=== PATIENT | female | born 1960 | race Caucasian/White ===

== ENCOUNTER 2016-12-24 13:58 | Observation (INO) | payer OTHER ==
[~2016-12-24] VITALS: Ht 172.7 cm; Wt 86.0 kg
[2016-12-24] VITALS (7 sets, daily range): BP systolic 121–180; BP diastolic 55–88; PULSE 72–115; RESP 16–18; TEMP 98.5–99.4; O2SAT 97–100
[2016-12-24 14:15] LABS: I-STAT POTASSIUM 3.7 MMOL/L (3.5-4.9); I-STAT SODIUM 141 MMOL/L (138-146)
[2016-12-24 14:17] LABS: AUTOMATED NEUTROPHIL # 5.4 TH/MM3 (1.8-7.7); BASOPHIL # 0.1 TH/MM3 (0-0.2); BASOPHIL % 0.6 % (0.0-2.0); EOSINOPHIL # 0.1 TH/MM3 (0-0.4); EOSINOPHIL % 1.8 % (0.0-4.0); HEMATOCRIT 43.8 % (35.0-46.0); HEMO FLAGS DIFF FINAL; LYMPH % 25.8 % (9.0-44.0); LYMPHOCYTE # 2.1 TH/MM3 (1.0-4.8); MEAN CELL VOLUME 87.3 FL (80.0-100.0); MEAN CORPUSCULAR HEMOGLOBIN 29.4 PG (27.0-34.0); MEAN CORPUSCULAR HGB CONC 33.7 % (32.0-36.0); MONO % 6.8 % (0.0-8.0); PLATELET COUNT 268 TH/MM3 (150-450); RED BLOOD COUNT 5.02 MIL/MM3 (4.00-5.30); RED CELL DISTRIBUTION WIDTH 13.4 % (11.6-17.2); WHITE BLOOD COUNT 8.3 TH/MM3 (4.0-11.0)
[2016-12-24 14:24] LABS: APTT (PATIENT) 22.6 SEC (24.3-30.1); INTERNATIONAL NORMALIZED RATIO 0.9 RATIO; PROTHROMBIN TIME - PATIENT 10.1 SEC (9.8-11.6)
--- NOTE | 2016-12-24 14:25 | RADRPT ---
EXAM DATE/TIME: 12/24/2016 14:08 [facility] COMPARISON: No previous studies available for comparison. INDICATIONS : Temporarily unable to speak, since resolve RADIATION DOSE: 56.35 CTDIvol (mGy) This report was called by Dr Kincaid to Dr Hernandez at 1420 MEDICAL HISTORY : None SURGICAL HISTORY : None. ENCOUNTER: Initial ACUITY: 1 day PAIN SCALE: 0/10 LOCATION: cranial TECHNIQUE: Multiple contiguous axial images were obtained of the head. Using automated exposure control and adj ustment of the mA and/or kV according to patient size, radiation dose was kept as low as reasonably a chievable to obtain optimal diagnostic quality images. DICOM format image data is available electro nically for review and comparison. FINDINGS: CEREBRUM: The ventricles are normal for age. No evidence of midline shift, mass lesion, hemorrhage or acute in farction. No extra-axial fluid collections are seen. POSTERIOR FOSSA: The cerebellum and brainstem are intact. The 4th ventricle is midline. The cerebellopontine angle i s unremarkable. EXTRACRANIAL: The visualized portion of the orbits is intact. SKULL: The calvaria is intact. No evidence of skull fracture. CONCLUSION: Normal examination. Kirk Kirkpatrick Jr., MD on December 24, 2016 at 14:19 Board Certified Radiologist. This report was verified electronically.
[2016-12-24 14:35] LABS: BETA HCG QUANT 2 MIU/ML (0-5); CREATINE KINASE 115 U/L (26-192)
--- NOTE | 2016-12-24 14:46 | PD ---
HPI Chief Complaint: Stroke Alert Time Seen by Provider: 14:05 Travel History International Travel<30 days: No Contact w/Intl Traveler<30days: No Traveled to known affect area: No History of Present Illness HPI 56-year-old female came to the emergency room brought by EMS as a stroke alert. Patient was last seen normal at 12:30 PM. 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 She just got up from her desk after lunch to go and talk to another staff when she started getting very confused. She was having trouble talking. No history of headache or loss of consciousness. The symptoms continued when EMS arrived. She did not have any focal deficits. Blood sugar was 162. Patient was tachycardic and hypertensive for them. As per the patient she's never had these symptoms in the past. Patient denied of any chest pain or syncopal episode. She seemed very anxious and kept apologizing. She was talking and answering questions but I had to repeat the question partly because she seemed anxious and overwhelmed and partly because she seemed to have trouble focusing. [facility] Past Medical History Narrative Medical List of her past medical, surgical, social and family history is reviewed from the nursing note. Hypertension: Yes ?: Unknown Social History Alcohol Use: No Tobacco Use: No Substance Use: No Allergies-Medications (Allergen,Severity, Reaction): Coded Allergies: codeine (Verified Allergy, Severe, Nausea/Vomiting, 12/24/16) Comments List of her allergies reviewed from the nursing note. Reported Meds & Prescriptions Reported Meds & Active Scripts Active Reported Fish Oil + D3 (Fish Oil-Cholecalciferol) 1,200-1,000 Mg-Unit Cap 1 Cap PO DAILY Prilosec (Omeprazole Magnesium) 10 Mg Pow 10 Mg PO DAILY Imitrex (Sumatriptan Succinate) Unknown Strength Tab Unknown Dose PO ONCE PRN If a satisfactory response has not been obtained at 2 hours, a second dose may be administered Prempro Blister Pack (Estrogens Conj/Medroxyprogest Acet) 0.625-2.5 Mg Tab 1 Tab PO EVERY OTHER DAY Biotin Unknown Strength Tab Unknown Dose PO DAILY Lisinopril Unknown Strength Tab 20 Mg PO DAILY Narrative Medication List of her home medications reviewed from the nursing note. Review of Systems Except as stated in HPI: all other systems reviewed are Neg Neurologic: Positive: Change in Mentation, Other (confusion) Psychiatric: Positive: Anxiety Physical Exam Narrative GENERAL: Awake, alert, extremely anxious SKIN: Focused skin assessment warm/dry. HEAD: Atraumatic. Normocephalic. EYES: Pupils equal and round. No scleral icterus. No injection or drainage. ENT: No nasal bleeding or discharge. Mucous membranes pink and moist. NECK: Trachea midline. No JVD. CARDIOVASCULAR: Regular rate and rhythm. No murmur appreciated. RESPIRATORY: No accessory muscle use. Clear to auscultation. Breath sounds equal bilaterally. GASTROINTESTINAL: Abdomen soft, non-tender, nondistended. Hepatic and splenic margins not palpable. MUSCULOSKELETAL: No obvious deformities. No clubbing. No cyanosis. No edema. NEUROLOGICAL: Awake and alert. No obvious cranial nerve deficits. Motor grossly within normal limits. Normal speech. NIH stroke score 0 PSYCHIATRIC: Appropriate mood and affect; insight and judgment normal. Data Data Last Documented VS Vital Signs Date Time Temp Pulse Resp B/P (MAP) Pulse Ox O2 Delivery O2 Flow Rate FiO2 12/24/16 14:25 92 16 164/78 (106) 99 Room Air Orders Orders Diet Npo (12/24/16 Dinner) Activity Bed Rest (12/24/16 ) Electrocardiogram (12/24/16 ) I-Stat Creatinine (12/24/16 14:05) I-Stat Profile (12/24/16 14:05) Prothrombin Time / Inr (Pt) (12/24/16 14:05) Act Partial Throm Time (Ptt) (12/24/16 14:05) Complete Blood Count With Diff (12/24/16 14:05) Fibrinogen (12/24/16 14:05) Creatine Kinase (Cpk) (12/24/16 14:05) Troponin I (12/24/16 14:05) Ua Includes Microscopic (12/24/16 14:05) Drug Screen, Random Urine (12/24/16 14:05) Type And Screen (12/24/16 14:05) Ct Brain W/O Iv Contrast(Rout) (12/24/16 ) Beta Hcg (Quant/Titer) (12/24/16 14:05) Blood Glucose (12/24/16 14:05) Ecg Monitoring (12/24/16 14:05) Neuro Checks Q2HX12,Q4H (12/24/16 14:05) Nursing Bedside Swallow Assess .ONCE (12/24/16 14:05) Iv Access Insert/Monitor (12/24/16 14:05) NPO (12/24/16 14:05) Oximetry (12/24/16 14:05) Oxygen Administration (12/24/16 14:05) Resp Oxygen Ricki C Titrat 1-4 L (12/24/16 14:05) Cath For Specimen (12/24/16 14:05) Westergren Sedimentation Rate (12/24/16 14:16) Rapid Plasma Regin (Rpr) W Ttr (12/24/16 14:16) Christa Screen (12/24/16 14:16) Thyroid Stimulating Hormone (12/24/16 14:16) Free Thyroxine (T4) (12/24/16 14:16) Vitamin B1 (Thiamine) (12/24/16 14:16) Vitamin B12 (12/24/16 14:16) Ast (Sgot) (12/24/16 14:16) Alt (Sgpt) (12/24/16 14:16) Mri Brain W&W/O Contrast (12/24/16 14:16) Eeg Study (12/24/16 14:16) Holter Monitor Recording (12/24/16 14:16) Machine Buffer / Telemetry BONY.Q8H (12/24/16 14:16) ^ Seizure Precautions (12/24/16 14:16) Mra Brain W/O Contrast (Cow) (12/24/16 14:16) Aspirin Ec (Ecotrin Ec) (12/24/16 14:30) Sodium Chlor 0.9% 1000 Ml Inj (Ns 1000 M (12/24/16 14:16) Lipid Profile (12/24/16 14:16) Mra Carotids W Contrast (12/24/16 14:16) Scd&Teds Bilateral/Knee High BONY.QSHIFT (12/24/16 14:16) Alcohol (Ethanol) (12/24/16 14:54) Place In Observation (12/24/16 ) Admit Order (Ed Use Only) (12/24/16 15:13) Echo 2d Comp With Doppler (12/25/16 14:16) Labs Laboratory Tests Test 12/24/16 14:00 10/11/17 14:05 12/24/16 14:42 White Blood Count 8.3 TH/MM3 Red Blood Count 5.02 MIL/MM3 Hemoglobin 14.8 GM/DL Bedside Hemoglobin 14.6 G/DL Hematocrit 43.8 % Bedside Hematocrit 43.0 % Mean Corpuscular Volume 87.3 FL Mean Corpuscular Hemoglobin 29.4 PG Mean Corpuscular Hemoglobin Concent 33.7 % Red Cell Distribution Width 13.4 % Platelet Count 268 TH/MM3 Mean Platelet Volume 9.1 FL Neutrophils (%) (Auto) 65.0 % Lymphocytes (%) (Auto) 25.8 % Monocytes (%) (Auto) 6.8 % Eosinophils (%) (Auto) 1.8 % Basophils (%) (Auto) 0.6 % Neutrophils # (Auto) 5.4 TH/MM3 Lymphocytes # (Auto) 2.1 TH/MM3 Monocytes # (Auto) 0.6 TH/MM3 Eosinophils # (Auto) 0.1 TH/MM3 Basophils # (Auto) 0.1 TH/MM3 CBC Comment DIFF FINAL Differential Comment Prothrombin Time 10.1 SEC Prothromb Time International Ratio 0.9 RATIO Activated Partial Thromboplast Time 22.6 SEC Fibrinogen 270 mg/dL Bedside Sodium 141 MMOL/L Bedside Potassium 3.7 MMOL/L Bedside Chloride 104 MMOL/L Bedside Blood Urea Nitrogen 18 MG/DL Bedside Creatinine 0.8 MG/DL Bedside Glucose 170 MG/DL Total Creatine Kinase 115 U/L Troponin I LESS THAN 0.02 NG/ML Human Chorionic Gonadotropin, Quant 2 MIU/ML Urine Opiates Screen NEG Urine Barbiturates Screen NEG Urine Amphetamines Screen NEG Urine Benzodiazepines Screen NEG Urine Cocaine Screen NEG Urine Cannabinoids Screen NEG Urine Color LIGHT-YELLOW Urine Turbidity CLEAR Urine pH 6.5 Urine Specific [place] 1.004 Urine Protein NEG mg/dL Urine Glucose (UA) 70 mg/dL Urine Ketones NEG mg/dL Urine Occult Blood TRACE Urine Nitrite NEG Urine Bilirubin NEG Urine Urobilinogen LESS THAN 2.0 MG/DL Urine Leukocyte Esterase NEG MDM Medical Decision Making Medical Screen Exam Complete: Yes Emergency Medical Condition: Yes Medical Record Reviewed: Yes Interpretation(s) Twelve-lead EKG was reviewed by me. Normal sinus rhythm, normal axis, nonspecific ST-T wave changes. Heart rate of 92 bpm. Differential Diagnosis TIA, anxiety, UTI, electrolyte abnormalities, intracranial bleed, hypertensive encephalopathy Narrative Course 2:42 PM blood test results are back and within acceptable limit except for her blood sugar which is a little high. Plain head CT is negative. Dr. Baer from neurology came to see the patient and he agrees that patient is not a TPA candidate. He has ordered MRI and MRA. Patient will be admitted for observation. Awaiting for hospitalist to call back. Procedures EKG Prior to Arrival: No Diagnosis Primary Impression: TIA (transient ischemic attack) Qualified Codes: G45.9 - Transient cerebral ischemic attack, unspecified Additional Impression: Anxiety Admitting Information Admitting Physician Requests: Observation Scripts Aspirin (Aspirin) 81 Mg Chew 81 MG CHEW DAILY for Blood Clot Prevention, #30 TAB 0 Refills Prov: Ash Skaggs 12/25/16 Rashmi Hernandez MD Dec 24, 2016 14:46
[2016-12-24] MEDS: SODIUM CHLOR 0.9% 1000 ML INJ 1,000 ML IV SCH ×2 (14:56→23:06)
[2016-12-24] MEDS: ASPIRIN EC 325 MG TABEC PO SCH (15:09)
[2016-12-24 15:23] LABS: BLOOD, URINE TRACE (NEG); GLUCOSE,URINE 70 mg/dL (NEG); KETONE, URINE NEG (NEG); NITRITE,URINE NEG (NEG); PH, URINE 6.5 (5.0-8.5); URINE COLOR LIGHT-YELLOW (YELLW/STRAW)
--- NOTE | 2016-12-24 16:01 | MB ---
cc: JABARI PONCE M.D. 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 Blood pressure there was over 200/100, according to her and she was brought in as a stroke alert. Here her blood pressure was elevated to 180/88 with a pulse of 115. REVIEW OF SYSTEMS She denies any diabetes, hypercholesterolemia, NE, CABG, cardiac arrhythmia, renal, hepatic or pulmonary disease, thyroid disease, lupus, ulcer, cancer, seizure, stroke, Coumadin and atrial fibrillation. SOCIAL HISTORY Nonsmoker. She occasionally has a drink. Lives with her . FAMILY HISTORY Negative for cancer, seizure, stroke. PHYSICAL EXAMINATION VITAL SIGNS: 180/88, 16, 115. NECK: There are no carotid bruits. HEART: Regular rhythm. I do not detect a murmur. NEURO: Pupils are equal, visual pond are full. Extraocular movements intact without nystagmus. Face is symmetric, normal sensation. Tongue was midline. There is no drift. She had normal strength in upper and lower extremities bilaterally. DTRs are 2+ symmetric throughout. Toes downgoing bilaterally. Pinprick is intact throughout. She is not ataxic on [id number]. Speech is fluent. She is not aphasic. She could read well. She follows commands well. She could name well for me. Repeat repetition is normal. Short-term memory 2/3 at 1 minute. LABORATORY DATA All of her labs are pending as she just came into the ER for a stroke alert. IMPRESSION NIH stroke scale is 0. We did not give her TPA because all of her symptoms were resolved and this was more than likely a hypertensive encephalopathy. TIA or small complex partial seizure could be considered. Will do a workup on her and give her an aspirin for now. I will be following her with you in the hospital. MD ERIC [place]/JESÚS /2:18 PM /3:54 PM
[2016-12-24] MEDS ORDERED: GADODIAMIDE PF 287 MG/ML 20 ML VIAL (for RAD MRI) IVCONTRAST ONE (17:00)
--- NOTE | 2016-12-24 17:06 | HHI.HP ---
[facility] Sherita Han MD Admission Diagnosis TIA, confusion, anxiety Diagnoses: Chief Complaint: Confusion Travel History International Travel<30 Days: No Contact w/Intl Traveler <30 Da: No Traveled to Known Affected Are: No History of Present Illness This is a 56-year-old female past medical history of hypertension who presented with confusion. 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 She stated that she was doing her routine and was sitting just but became very confused. She thought that she wanted been hypoglycemic because she did not have her typical snacks so she ate some nuts like she usually does but it did not help her confusion. She stated that she had a hard time doing things like when the phone rang her brain could not process that she had picked up the phone. She stated that since symptoms did not improve she went to Emergency department. Patient stated at the moment she feels her thoughts are more clear and not as confused. Throughout the interview patient answer all questions appropriately. She denies any focal neurological deficits. Patient stated that she has never had this happen to her before. She stated that since she started her new job she does have more stress in her life but she doesn't think that it's a lot of stress that would cause these type of symptoms. She denies feeling anxious or having anxiety. Patient stated that her blood pressure was measured by EMS All other review of system reviewed and negative. Past Family Social History Past Medical History Hypertension Past Surgical History , 2 back surgeries, cholecystectomy, appendectomy, skin cancer removal basal cell Allergies: Coded Allergies: codeine (Verified Allergy, Severe, Nausea/Vomiting, 12/24/16) Active Ordered Medications Current Medications Aspirin (Ecotrin Ec) 325 mg DAILY PO Last administered on 12/24/16 15:09; Start 12/24/16 at 14:30 Sodium Chloride 1,000 ml @ 75 mls/hr [id number] IV Last administered on 14:56; Start 12/24/16 at 14:16 Family History Father has history of diabetes. Social History Patient drinks socially. She stopped smoking 20 years ago. She stated prior she smoked one pack per day for 10 years. Denies illicit drug use. Physical Exam Vital Signs Vital Signs Date Time Temp Pulse Resp B/P (MAP) Pulse Ox O2 Delivery O2 Flow Rate FiO2 12/24/16 14:25 92 16 164/78 (106) 99 Room Air 12/24/16 14:16 99 Room Air 12/24/16 14:16 18 99 Room Air 12/24/16 13:58 115 16 180/88 (118) 100 Physical Exam GENERAL: This is a well-nourished, well-developed patient, in no apparent distress. SKIN: No rashes, ecchymoses or lesions. Cool and dry. HEAD: Atraumatic. Normocephalic. No temporal or scalp tenderness. EYES: Pupils equal round and reactive. Extraocular motions intact. No scleral icterus. No injection or drainage. ENT: Nose without bleeding, purulent drainage or septal hematoma. Throat without erythema, tonsillar hypertrophy or exudate. Uvula midline. Airway patent. NECK: Trachea midline. No JVD or lymphadenopathy. Supple, nontender, no meningeal signs. CARDIOVASCULAR: Regular rate and rhythm without murmurs, gallops, or rubs. RESPIRATORY: Clear to auscultation. Breath sounds equal bilaterally. No wheezes , rales, or rhonchi. GASTROINTESTINAL: Abdomen soft, non-tender, nondistended. No hepato-splenomegaly , or palpable masses. No guarding. MUSCULOSKELETAL: Extremities without clubbing, cyanosis, or edema. No joint tenderness, effusion, or edema noted. No calf tenderness. Negative Homans sign bilaterally. NEUROLOGICAL: Awake and alert. Cranial nerves II through XII intact. Motor and sensory grossly within normal limits. Five out of 5 muscle strength in all muscle groups. Normal speech. Laboratory Laboratory Tests Test 12/24/16 14:00 12/24/16 14:42 White Blood Count 8.3 Red Blood Count 5.02 Hemoglobin 14.8 Bedside Hemoglobin 14.6 Hematocrit 43.8 Bedside Hematocrit 43.0 Mean Corpuscular Volume 87.3 Mean Corpuscular Hemoglobin 29.4 Mean Corpuscular Hemoglobin Concent 33.7 Red Cell Distribution Width 13.4 Platelet Count 268 Mean Platelet Volume 9.1 Neutrophils (%) (Auto) 65.0 Lymphocytes (%) (Auto) 25.8 Monocytes (%) (Auto) 6.8 Eosinophils (%) (Auto) 1.8 Basophils (%) (Auto) 0.6 Neutrophils # (Auto) 5.4 Lymphocytes # (Auto) 2.1 Monocytes # (Auto) 0.6 Eosinophils # (Auto) 0.1 Basophils # (Auto) 0.1 CBC Comment DIFF FINAL Differential Comment Prothrombin Time 10.1 Prothromb Time International Ratio 0.9 Activated Partial Thromboplast Time 22.6 Fibrinogen 270 Bedside Sodium 141 Bedside Potassium 3.7 Bedside Chloride 104 Bedside Blood Urea Nitrogen 18 Bedside Creatinine 0.8 Bedside Glucose 170 Total Creatine Kinase 115 Troponin I LESS THAN 0.02 Human Chorionic Gonadotropin, Quant 2 Urine Color LIGHT-YELLOW Urine Turbidity CLEAR Urine pH 6.5 Urine Specific [place] 1.004 Urine Protein NEG Urine Glucose (UA) 70 Urine Ketones NEG Urine Occult Blood TRACE Urine Nitrite NEG Urine Bilirubin NEG Urine Urobilinogen LESS THAN 2.0 Urine Leukocyte Esterase NEG Result Diagram: 12/24/16 1400 Imaging Last Impressions Head CT 12/24/16 0000 Signed Impressions: Service Date/Time: Saturday, December 24, 2016 14:08 - CONCLUSION: Normal examination. Kirk Kirkpatrick Jr., MD Course Stroke alert was called and she was seen by neurologist Dr. Baer. Patient was not a candidate for TPA day. Caprini VTE Risk Assessment Caprini VTE Risk Assessment: No/Low Risk (score <= 1) Caprini Risk Assessment Model Point Value = 1 Point Value = 2 Point Value = 3 Point Value = 5 Age 41-60 Minor surgery BMI > 25 kg/m2 Swollen legs Varicose veins or History of unexplained or recurrent spontaneous Oral contraceptives or hormone replacement Sepsis (< 1 month) Serious lung disease, including pneumonia (< 1 month) Abnormal pulmonary function Acute myocardial infarction Congestive heart failure (< 1 month) History of inflammatory bowel disease Medical patient at bed rest Age 61-74 Arthroscopic surgery Major open surgery (> 45 min) Laparoscopic surgery (> 45 min) Malignancy Confined to bed (> 72 hours) Immobilizing plaster cast Central venous access Age >= 75 History of VTE Family history of VTE Factor V Leiden Prothrombin [id number] Lupus anticoagulant Anticardiolipin antibodies Elevated serum homocysteine Heparin-induced thrombocytopenia Other congenital or acquired thrombophilia Stroke (< 1 month) Elective arthroplasty Hip, pelvis, or leg fracture Acute spinal cord injury (< 1 month) Prophylaxis Regimen Total Risk Factor Score Risk Level Prophylaxis Regimen 0-1 Low Early ambulation 2 Moderate Order ONE of the following: *Sequential Compression Device (SCD) *Heparin 5000 units SQ BID 3-4 Higher Order ONE of the following medications: *Heparin 5000 units SQ TID *Enoxaparin/Lovenox 40 mg SQ daily (WT < 150 kg, CrCl > 30 mL/min) *Enoxaparin/Lovenox 30 mg SQ daily (WT < 150 kg, CrCl > 10-29 mL/min) *Enoxaparin/Lovenox 30 mg SQ BID (WT < 150 kg, CrCl > 30 mL/min) AND/OR *Sequential Compression Device (SCD) 5 or more Highest Order ONE of the following medications: *Heparin 5000 units SQ TID (Preferred with Epidurals) *Enoxaparin/Lovenox 40 mg SQ daily (WT < 150 kg, CrCl > 30 mL/min) *Enoxaparin/Lovenox 30 mg SQ daily (WT < 150 kg, CrCl > 10-29 mL/min) *Enoxaparin/Lovenox 30 mg SQ BID (WT < 150 kg, CrCl > 30 mL/min) AND *Sequential Compression Device (SCD) Assessment and Plan Assessment and Plan 56-year-old female history of hypertension who presented with confusion Confusion -TIA versus anxiety -CT scan of the head was negative. -Stroke alert called patient was not candidate for TPA. Symptoms seemed to resolved quickly. -Stroke workup already ordered by neurologist Dr. Baer. -Will follow with MRI of the brain, MRA of the brain/neck, echo, lipid panel. -Patient was put on aspirin and IV fluids until CVA is ruled out. Hypertension -Patient is on antihypertensive medication. She is unsure what medication she was on and unsure if it was controlled. -At the moment will allow permissive hypertension until CVA is ruled out. DVT prophylaxis -SCDs. Discussed Condition With patient Chelsey Nieves MD Dec 24, 2016 17:06
[2016-12-24] MEDS ORDERED: PRIL10PO PO (17:10)
[2016-12-24] MEDS ORDERED: PREM.625 PO (17:10)
[2016-12-24] MEDS ORDERED: FISHCAP4 PO (17:10)
[2016-12-24] MEDS ORDERED: IMIT50TA PO (17:10)
[2016-12-24] MEDS ORDERED: LISI10TA3 PO (17:10)
[2016-12-24] MEDS ORDERED: BIOT10TA PO (17:10)
--- NOTE | 2016-12-24 17:21 | RADRPT ---
EXAM DATE/TIME: 12/24/2016 16:20 This report includes an Addendum and supersedes previous reports for this exam. [facility] COMPARISON: No previous studies available for comparison. INDICATIONS : Episode of memory loss. CONTRAST: 20 cc Omniscan (gadodiamide) IV MEDICAL HISTORY : Hypertension. SURGICAL HISTORY : Cholecystectomy. Appendectomy. Tonsillectomy. ENCOUNTER: Subsequent ACUITY: 1 day PAIN SCORE: 0/10 LOCATION: Head. TECHNIQUE: Multiplanar, multisequence MRI of the brain was performed both prior to and following the administration of paramagnetic contrast. FINDINGS: The ventricles are of normal size. There is no parenchymal hemorrhage or mass effect. There is no restricted diffusion to suggest an acute ischemic event. Midline structures are intact. Posterior fossa appears normal. Following intravenous administration of gadolinium there is no abnormal contrast enhancement apprecia hailee. CONCLUSION: 1. Negative MRI for an acute ischemic event. 2. There is no abnormal contrast enhancement. Kiko Dias MD FACR on December 24, 2016 at 17:09 Board Certified Radiologist. This report was verified electronically. ADDENDUM: There is artifact across the brainstem on the postcontrast images. There is small focal area of appa rent enhancement in the lateral aspect of the mary kay at the level the brachial pontis, slightly right o f midline that could be small cryptic AVM in the appropriate clinical circumstances. The there is mi nimal hemosiderin this area as well. This would be inapparent by angiography. This could easily be followed by MRI with contrast with thi n sections through the posterior fossa. Repeat MRI should be performed with the frequency encoding s wapped to orient the artifact from anterior to posterior. Kiko Dias MD FACR on December 25, 2016 at 7:27 Board Certified Radiologist. This report was verified electronically.
--- NOTE | 2016-12-24 17:41 | RADRPT ---
EXAM DATE/TIME: 12/24/2016 16:20 [facility] COMPARISON: No previous studies available for comparison. INDICATIONS : Episode of memory loss. MEDICAL HISTORY : Hypertension. SURGICAL HISTORY : Cholecystectomy. Appendectomy. Tonsillectomy. ENCOUNTER: Subsequent ACUITY: 1 day PAIN SCORE: 0/10 LOCATION: head. Please note a normal MRA of the brain does not entirely exclude the possibility of a small aneurysm, nor the possibility of distal intracranial vessel disease. TECHNIQUE: 3D time of flight MRA was performed. Source images, multiplanar STS MIP, and 3D volume MIP reconstru ctions were reviewed. FINDINGS: There is excellent visualization of the major intracranial arteries out to the second-order branch ve ssels. There is no evidence for aneurysm, vessel truncation or stenosis, and no evidence for vascula r malformation. CONCLUSION: 1. Unremarkable MR angiography of the brain. Yovanny Contreras MD on December 24, 2016 at 17:39 Board Certified Radiologist. This report was verified electronically.
[2016-12-24 18:41] LABS: FREE T4 0.9 NG/DL (0.76-1.46); HDL CHOLESTEROL 54.6 MG/DL (40.0-60.0)
--- NOTE | 2016-12-24 19:01 | RADRPT ---
EXAM DATE/TIME: 12/24/2016 16:20 [place] COMPARISON: No previous studies available for comparison. INDICATIONS : Stenosis. Episode of memory loss. CONTRAST: 20 cc Omniscan (gadodiamide) IV MEDICAL HISTORY : Hypertension. SURGICAL HISTORY : Appendectomy. Cholecystectomy. Tonsillectomy. ENCOUNTER: Subsequent ACUITY: 1 day PAIN SCORE: 0/10 LOCATION: head. Percent stenosis is calculated using the diameter of the stenotic region over the diameter of the nor mal distal internal carotid artery. TECHNIQUE: Bolus infused MRA of the extracranial circulation was performed using a neurovascular coil. Post pro cessing was performed including rotating subvolume maximum intensity projections of each carotid jie ry, rotating full volume maximum intensity projections of both carotid arteries, sagittal and coronal sliding thin slab reformations of each carotid artery, and left oblique sliding thin slab reformatio n through the aortic arch to include the origin of the arch branch vessels. FINDINGS: AORTIC ARCH: There is a three vessel origin of the great vessels from the aorta. No evidence of ostial narrowing. RIGHT CAROTID: The common carotid artery is intact. The carotid bulb has a normal configuration without ulceration or narrowing. The internal carotid artery lumen is smooth without stenosis. The external carotid ar rishabh is intact. LEFT CAROTID: The common carotid artery is intact. The carotid bulb has a normal configuration without ulceration or narrowing. The internal carotid artery lumen is smooth without stenosis. The external carotid ar rishabh is intact. VERTEBRALS: The vertebral arteries have a symmetric diameter. No stenotic lesions are seen. CONCLUSION: Unremarkable MRA of the carotids. Wes Causey MD on December 24, 2016 at 18:58 Board Certified Radiologist. This report was verified electronically.
[2016-12-25] VITALS: PULSE 70
[2016-12-25 03:50] VITALS: BP 138/68; PULSE 70; RESP 18; TEMP 98.6; O2SAT 99
[2016-12-25 04:00] VITALS: PULSE 67
--- NOTE | 2016-12-25 06:57 | HHI.PR ---
Subjective Remarks sr Objective Vital Signs Date Time Temp Pulse Resp B/P (MAP) Pulse Ox O2 Delivery O2 Flow Rate FiO2 12/25/16 04:00 67 12/25/16 03:50 98.6 70 18 138/68 (91) 99 12/25/16 00:00 70 12/24/16 23:25 99.4 72 18 121/55 (77) 97 12/24/16 20:26 98.5 80 17 123/68 (86) 97 12/24/16 20:00 80 12/24/16 19:11 87 12/24/16 17:16 12/24/16 14:25 92 16 164/78 (106) 99 Room Air 12/24/16 14:16 99 Room Air 12/24/16 14:16 18 99 Room Air 12/24/16 13:58 115 16 180/88 (118) 100 Result Diagram: 12/24/16 1400 Objective Remarks awake alert nl exam and ms now Assessment and Plan Assessment and Plan imp mri /a/a neg x likley r pontine avm rads needs to review eeg and echo pend if echo neg and eeg done and holter on may be able to dc later today may not do asa if avm she has some hx of ? low blood sugar spells in past may have been htn enceph here though holter should be put on needs statin although that also can inc risk of ich Yovanny Baer MD Dec 25, 2016 06:57
[2016-12-25 07:31] VITALS: BP 147/93; PULSE 79; RESP 18; TEMP 98.4; O2SAT 98
[2016-12-25] MEDS ORDERED: PANTOPRAZOLE SOD 20 MG DELAYED RELEASE TAB PO SCH (09:00)
[2016-12-25] MEDS ORDERED: LISINOPRIL 10 MG TAB PO SCH (09:00)
--- NOTE | 2016-12-25 09:26 | HHI.PR ---
Subjective Remarks Follow-up for confusion. at bedside. The patient states that she felt her vision was blurry and her thinking was disorganized yesterday. Her symptoms have resolved to normal today. She has no complaints currently. She states she's been ambulating with no lightheadedness, dizziness, or unsteadiness. She states she thought her symptoms were because she tends to have low blood sugars and she hadn't eaten much but they didn't improve after she ate. She denies any history of diabetes. She states that her blood pressure was in the 210's systolic when EMS arrived. She is not sure what dose lisinopril she takes, but will call her PCP today to reconcile this. She denies any new medications recently. She is hoping to go home today. Objective Vitals Vital Signs Date Time Temp Pulse Resp B/P (MAP) Pulse Ox O2 Delivery O2 Flow Rate FiO2 12/25/16 07:31 98.4 79 18 147/93 (111) 98 12/25/16 04:00 67 12/25/16 03:50 98.6 70 18 138/68 (91) 99 12/25/16 00:00 70 12/24/16 23:25 99.4 72 18 121/55 (77) 97 12/24/16 20:26 98.5 80 17 123/68 (86) 97 12/24/16 20:00 80 12/24/16 19:11 87 12/24/16 17:16 12/24/16 14:25 92 16 164/78 (106) 99 Room Air 12/24/16 14:16 99 Room Air 12/24/16 14:16 18 99 Room Air 12/24/16 13:58 115 16 180/88 (118) 100 Result Diagram: 12/24/16 1400 Imaging Last Impressions Neck Magnetic Resonance Angiography 12/24/161415 Signed Impressions: Service Date/Time: Saturday, December 24, 2016 16:20 - CONCLUSION: Unremarkable MRA of the carotids. Wes Causey MD Head Magnetic Resonance Angiography 12/24/161415 Signed Impressions: Service Date/Time: Saturday, December 24, 2016 16:20 - CONCLUSION: 1. Unremarkable MR angiography of the brain. Yovanny Contreras MD Brain MRI 10/11/17 1416 Signed Impressions: Service Date/Time: Saturday, December 24, 2016 16:20 - CONCLUSION: 1. Negative MRI for an acute ischemic event. 2. There is no abnormal contrast enhancement. Kiko Dias MD FACRADDENDUM: There is artifact across the brainstem on the postcontrast images. There is small focal area of apparent enhancement in the lateral aspect of the mary kay at the level the brachial pontis, slightly right of midline that could be small cryptic AVM in the appropriate clinical circumstances. The there is minimal hemosiderin this area as well. This would be inapparent by angiography. This could easily be followed by MRI with contrast with thin sections through the posterior fossa. Repeat MRI should be performed with the frequency encoding swapped to orient the artifact from anterior to posterior. Kiko Dias MD FACR Head CT 12/24/16 0000 Signed Impressions: Service Date/Time: Saturday, December 24, 2016 14:08 - CONCLUSION: Normal examination. Kirk Kirkpatrick Jr., MD Objective Remarks GENERAL: Well-developed well-nourished. In no acute distress. SKIN: Warm and dry. No lesions noted. HEENT: Normocephalic. Pupils equal and round. Mucous membranes pink and moist. CARDIOVASCULAR: Regular rate and rhythm. No murmur appreciated. RESPIRATORY: No accessory muscle use. Clear to auscultation. Breath sounds equal bilaterally. GASTROINTESTINAL: Abdomen soft, non-tender, nondistended. Bowel sounds x4. MUSCULOSKELETAL: No obvious deformities. No clubbing or cyanosis. No edema. NEUROLOGICAL: Awake and alert. No focal neurological deficits. Moves upper and lower extremities spontaneously. Normal speech. PSYCHIATRIC: Appropriate mood and affect; insight and judgment normal. A/P Assessment and Plan 56-year-old female history of hypertension who presented with confusion Transient confusion: Differential includes TIA, hypoglycemic, hypertensive encephalopathy, panic attack/anxiety. Symptoms have resolved at this time. Reviewed: CT scan of the head was negative. Brain MRI negative for acute ischemic event, questionable small cryptic pontine AVM, brain/neck MRAs unremarkable. Lipid profile with LDL 134. -Echocardiogram pending -Holter monitor placed -EEG done, results pending -Neurology consulted, appreciate input, recommends if EEG is done and echo was negative patient may be able to discharge later today -Started on aspirin by neurology -IVF -Neurology considering statin depending on MRI findings Hypertension: Hypertensive urgency/accelerated hypertension on arrival, currently improved. -Patient is on lisinopril at home, unsure of dose, will reconcile dose. Consider increasing home lisinopril dose. -Patient educated on monitoring her blood pressure at home DVT prophylaxis -SCDs. Discharge Planning Discharge planning to home if echocardiogram is unremarkable. Addendum 1300: Echocardiogram is unremarkable. Informed neurology and an MRI addendum. Dr. Baer recommends Holter monitor and outpatient follow-up with him in 4 weeks and continue on baby aspirin. Patient has been informed of all findings and plan of care and are happy for discharge home today for outpatient follow-up. Ash Skaggs Dec 25, 2016 09:26
[2016-12-25] MEDS ORDERED: GABA600T PO (09:28)
[2016-12-25] MEDS: ASPIRIN EC 325 MG TABEC PO SCH (09:30)
[2016-12-25] MEDS ORDERED: NAPR500T PO (09:44)
[2016-12-25 11:14] VITALS: BP 132/82; PULSE 83; RESP 18; TEMP 99.1; O2SAT 96
[2016-12-25] MEDS ORDERED: LISINOPRIL 10 MG TAB PO ONE (11:15)
[2016-12-25 11:39] LABS: ANION GAP 10 MEQ/L (5-15); BICARBONATE 23.5 MEQ/L (21.0-32.0); BLOOD UREA NITROGEN 14 MG/DL (7-18); CHLORIDE 107 MEQ/L (98-107); GLOMERULAR FILTRATION RATE 83 ML/MIN (>89); POTASSIUM 3.7 MEQ/L (3.5-5.1); SODIUM (NA) 140 MEQ/L (136-145)
--- NOTE | 2016-12-25 12:11 | EKG ---
Date Performed: 12/24/2016 Time Performed: 14:54:28 PTAGE: 56 years EKG: Sinus rhythm NORMAL ECG NO PREVIOUS TRACING DOCTOR: Shira Cuevas Interpretating Date/Time 12/25/2016 12:09:26
--- NOTE | 2016-12-25 12:34 | ECHRPT ---
Indication: Transient cerebral ischemic attack, unspecified CONCLUSIONS The transthoracic study is normal by two-dimensional, color flow imaging and Doppler interrogation. BP: 180 / 88 HR: 115 Rhythm: MEASUREMENTS (Male / Female) Normal Values Technical Quality:Good 2D ECHO LV Diastolic Diameter PLAX 4.1 cm 4.2 - 5.9 / 3.9 - 5.3 cm LV Systolic Diameter PLAX 3.0 cm IVS Diastolic Thickness 1.2 cm 0.6 - 1.0 / 0.6 - 0.9 cm LVPW Diastolic Thickness 1.1 cm 0.6 - 1.0 / 0.6 - 0.9 cm LV Relative Wall Thickness 0.6 RV Internal Dim ED PLAX 2.4 cm M-MODE Aortic Root Diameter MM 3.3 cm LA Systolic Diameter MM 3.7 cm LA Ao Ratio MM 1.1 AV Cusp Separation MM 1.9 cm DOPPLER Mitral E Point Velocity 105.0 cm/s Mitral A Point Velocity 121.0 cm/s Mitral E to A Ratio 0.9 LV E' Lateral Velocity 11.4 cm/s Mitral E to LV E' Lateral Ratio 9.2 FINDINGS LEFT VENTRICLE Normal left ventricular size and wall thickness. The left ventricular systolic function is normal wi th an estimated ejection fraction in the range of 60-65%. Left ventricular diastolic function parameters a re normal. RIGHT VENTRICLE Normal right ventricular size and systolic function. LEFT ATRIUM The left atrial size is normal. RIGHT ATRIUM The right atrial size is normal. ATRIAL SEPTUM Normal atrial septal thickness without atrial level shunting by limited color doppler interrogation. AORTA The aortic root and proximal ascending aorta are normal in size on limited imaging. MITRAL VALVE Structurally normal mitral valve. No mitral valve stenosis or regurgitation. AORTIC VALVE Trileaflet aortic valve. No aortic valve stenosis or regurgitation. TRICUSPID VALVE Structurally normal tricuspid valve. No tricuspid valve stenosis or regurgitation. PULMONARY VALVE The pulmonary valve is not well visualized. VESSELS The inferior vena cava is normal in size. PERICARDIUM There is no pericardial effusion. Orville Siddiqui MD, FACC (Electronically Signed) Final Date:25 December 2016 12:33
[2016-12-25] MEDS ORDERED: ASPI325T33 PO (12:39)
[2016-12-25] MEDS ORDERED: ACETAMINOPHEN 325 MG TAB PO ONE (13:00)
[2016-12-25] MEDS ORDERED: ASPI81CH CHEW (13:07)
[2016-12-25 15:55] LABS: HEMOGLOBIN A1a 1.2 %; HEMOGLOBIN A1b 2.2 %; HEMOGLOBIN Ao 83.8 %; HEMOGLOBIN LA1C 2.4 %; HEMOGLOBIN P3 5.5 %
--- NOTE | 2016-12-25 16:29 | MG ---
cc: LEESA RODRIGUEZ M.D., DAVID J. M.D. Lab No: Date: 12/25/2016 Age: 56 Sex: F Race: REQUESTING PHYSICIAN: Dr. Baer An EEG was obtained on this 56-year-old patient being evaluated for a stroke alert. The patient is described as awake and asleep. The EEG shows 10-12 per second alpha rhythms in the central and posterior head regions. There is low amplitude beta rhythms in the central and frontal head regions predominantly. Mild intermixed theta activity is later on seen, it relates to drowsiness. Photic stimulation shows a bilateral driving response. Hyperventilation was not performed. INTERPRETATION Normal awake and drowsy EEG. MD GIULIANA Jean/ /4:05 PM /4:17 PM
[2016-12-25] MEDS ORDERED: LISINOPRIL 20 MG TAB PO SCH (21:00)
[2016-12-26 11:52] LABS: ANA SCREEN NEG (NEG)
--- NOTE | 2016-12-26 16:01 | HM ---
Date Performed: 12/24/2016 Time Performed: 20:16:00 HOOKUP DATE: 12/24/16 08:16:00 PM Wed ANALYSIS START TIME: 12/24/2016 8:21:00 PM ANALYSIS END TIME: 12/25/2016 12:51:54 PM PATIENT AGE: 56 PATIENT HEIGHT PATIENT WEIGHT DRUG LIST PATIENT DIAGNOSIS TEST NARRATIVE: The patient's average heart rate was 75 BPM. Heart rates greater than 120 B PM were noted < 1% of the time. No episodes of bradycardia were noted. No pauses exceeding 2.0 s econds were noted. 5 ventricular ectopics, which represented < 1% of the total beat count, were n oted. The highest ventricular ectopic frequency occurred from 03:00 AM to 04:00 AM Love. During this time 2 VE(s) occurred. Ventricular ectopics were observed as 5 isolated beat(s) only. No couplets or runs were noted. No supraventricular ectopics were noted. No episodes of ST depression (de fined as -1.0 mm or more) were noted in channel 1. No episodes of ST depression (defined as -1.0 mm or more) were noted in channel 2. No episodes of ST depression (defined as -1.0 mm or more) were not ed in channel 3. NO DIARY ENTRIES TEST INTERPRETATION: The underlying rhythm is Sinus rhythm with average rate 75 bpm and range of 51 to 122 bpm. Rare isolated premature ventricular contraction s were seen. Signed by : Kody cristina
== END 2016-12-25 14:27 | disposition home or self-care (01) ==
LOC: NEPE 13:58 → NEDH 15:14 → NEPHCDU 17:32
PROVIDERS: ADMIT Hospitalist; ATTEND Hospitalist
DX: R41.0 Disorientation, unspecified (principal); F41.9 Anxiety disorder, unspecified; I16.0 Hypertensive urgency; I10 Essential (primary) hypertension; E16.2 Hypoglycemia, unspecified; Z79.82 Long term (current) use of aspirin; Z85.828 Personal history of other malignant neoplasm of skin; Z87.891 Personal history of nicotine dependence
CPT/HCPCS: 70450; 70544; 70548; 70553; 80048; 80061; 80307; 81001; 82435; 82550; 82565; 82607; 82947; 83036; 84132; 84295; 84425; 84439; 84443; 84450; 84460; 84484; 84520; 84702; 85025; 85384; 85610; 85652; 85730; 86038; 86592; 86850; 86900; 86901; 93005; 93225; 93226; 93306; 95819; 96360; 96361; 99285; A9579; G0378; J7030

== ENCOUNTER 2017-06-23 05:32 | Day surgery (SDC) | payer OTHER ==
[~2017-06-23 05:32] MED LIST: ASPI-516 CHEW; BIOT10TA PO; FISHCAP4 PO; IMIT50TA PO; LISI10TA3 PO; OMEP10SU PO; PREM.625 PO
[2017-06-23] MEDS ORDERED: MUPIROCIN 2% OINT 1 APPLIC/GM SYR NASAL SCH (06:00)
[2017-06-23] MEDS ORDERED: NS 1000 ML IV SCH (06:00)
[2017-06-23] MEDS ORDERED: CEFAZOLIN INJ 2,000 MG in SODIUM CHLORIDE 0.9% INJ 100 ML IV SCH (06:00)
[2017-06-23] MEDS ORDERED: POVIDONE IODINE 5% (ANTISEPSIS KIT) 4 APPLICATIONS EACH NARE SCH (06:00)
[2017-06-23] MEDS ORDERED: CHLORHEXIDINE GLUCONATE 2 % 1 PACK (2 CLOTHS) TOPICAL SCH (06:00)
[2017-06-23] MEDS ORDERED: VITA100T65 PO (06:12)
[2017-06-23] MEDS ORDERED: CLAR10CA3 PO (06:12)
[2017-06-23] MEDS ORDERED: CALG500 (06:12)
[2017-06-23] MEDS ORDERED: MULT-65 PO (06:12)
[2017-06-23] MEDS ORDERED: DOCU50CA5 (06:12)
[2017-06-23] MEDS ORDERED: MIDAZOLAM HCL 5 MG/ML VIAL (1 ML) ONE (07:20)
[2017-06-23] MEDS ORDERED: LIDOCAINE HCL 1% PF 30 ML VIAL ONE (07:35)
--- NOTE | 2017-06-23 07:57 | MP ---
cc: Montrell Gray MD, Alan S MD DATE OF OPERATION: 06/23/2017 DATE OF PROCEDURE: 06/23/2017 PROCEDURES PERFORMED: 1. 15 minutes moderate IV sedation. 2. Loop recorder insertion. DESCRIPTION OF PROCEDURE: The patient was brought to the DOC Unit in the postabsorptive state. After informed consent was obtained, 3 mg of Versed and 37.5 mcg of fentanyl was given for moderate IV sedation. Next, a [employer],loop recorder was inserted subcutaneously into the left chest. The patient tolerated the procedure well without any apparent complications. Tachybrady pause and atrial fibrillation detection was enabled. The initial R-wave was 0.28 millivolts. The serial number was [id number]. MD PASTORA Verduzco/GEN , 07:46 AM , 07:56 AM
== END 2017-06-23 08:25 | disposition home or self-care (01) ==
LOC: HDOC 05:32 → HDIC 05:33 → HDOC 08:25
PROVIDERS: ATTEND Nuclear Medicine Nuclear Cardiology
DX: I67.9 Cerebrovascular disease, unspecified (principal); I49.3 Ventricular premature depolarization; I10 Essential (primary) hypertension; E78.5 Hyperlipidemia, unspecified
CPT/HCPCS: 33282; C1764; J2250; J3010